=== PATIENT | female | born 1970 | race African-American/Black ===

== ENCOUNTER 2016-08-04 02:25 | Emergency (ER) | payer OTHER ==
[~2016-08-04] VITALS: Ht 162.6 cm; Wt 102.0 kg
[2016-08-04 02:26] VITALS: BP 140/88
== END 2016-08-04 03:50 | disposition left against medical advice (07) ==
LOC: ER 02:34
DX: F41.9 Anxiety disorder, unspecified (principal); Z53.21 Procedure and treatment not carried out due to patient leaving prior to being seen by health care provider
CPT/HCPCS: 81025

== ENCOUNTER 2020-10-04 15:09 | Emergency (ER) | payer MEDICAID, OTHER ==
[~2020-10-04] VITALS: Ht 160 cm; Wt 113.0 kg
[2020-10-04 15:37] VITALS: BP 123/89
[2020-10-04] MEDS ORDERED: CEPH500C2 MT (17:11)
[2020-10-04] MEDS ORDERED: ACYC200C PO (17:11)
== END 2020-10-04 17:21 | disposition home or self-care (01) ==
LOC: ER 15:30
DX: S80.861A Insect bite (nonvenomous), right lower leg, initial encounter (principal); S40.862A Insect bite (nonvenomous) of left upper arm, initial encounter; L03.90 Cellulitis, unspecified; F12.10 Cannabis abuse, uncomplicated; Z98.51 Tubal ligation status; W57.XXXA Bitten or stung by nonvenomous insect and other nonvenomous arthropods, initial encounter; Y93.89 Activity, other specified; Y92.018 Other place in single-family (private) house as the place of occurrence of the external cause
CPT/HCPCS: 99283; Z7610

== ENCOUNTER 2021-06-01 13:07 | Emergency (ER) | payer MEDICAID, OTHER ==
[~2021-06-01] VITALS: Ht 160 cm; Wt 118.0 kg
[~2021-06-01 13:07] MED LIST: ACYC200C31 PO; CEPH500C2 MT
[2021-06-01 13:11] VITALS: BP 163/99
== END 2021-06-01 14:32 | disposition home or self-care (01) ==
LOC: ER 13:07
DX: T78.40XA Allergy, unspecified, initial encounter (principal); F12.10 Cannabis abuse, uncomplicated; Z98.890 Other specified postprocedural states; Z98.51 Tubal ligation status; X58.XXXA Exposure to other specified factors, initial encounter
CPT/HCPCS: 93005; 99283